=== PATIENT | female | born 1990 | race Caucasian/White ===

== ENCOUNTER 2017-06-04 03:17 | Emergency (ER) | payer SELFPAY ==
[2017-06-04 04:54] VITALS: BP 110/53
[2017-06-04] MEDS ORDERED: BENADRYL PO ONE (05:42)
[2017-06-04] MEDS ORDERED: REGLAN PO ONE (05:42)
[2017-06-04] MEDS ORDERED: DELTASONE PO ONE (05:42)
--- NOTE | 2017-06-04 05:46 | Emergency Department Report ---
HPI - General Chief Complaint: Allergic Reaction Time Seen by Provider: 06/04/17 05:42 - HPI HPI: Patient is a 26-year-old female who speaks appropriate [place] for accurate communication patient states his throat swelling after taking left over antibiotics at home yesterday there is no shortness of breath no wheezing no dizziness no nausea vomiting no headache no chest pain patient presents today for toothache right upper described as aching and throbbing intermittent this is a chronic toothache, there is no fever no chills no tachycardia no tachypnea no shortness of breath noted at this time ED Past Medical Hx - Past Medical History Additional medical history: Insomnia - Social History Smoking Status: Never Smoker Substance Use Type: None - Medications Home Medications: Home Medications Medication Instructions Recorded Confirmed Last Taken Type traMADol [Ultram 50 MG tab] 50 mg PO Q6HR PRN #10 tablet 02/23/16 Unknown Rx Clindamycin [Clindamycin CAP] 150 mg PO Q8HR #21 capsule 06/04/17 Unknown Rx Ibuprofen [Motrin 600 MG tab] 600 mg PO Q8H PRN #30 tablet 06/04/17 Unknown Rx Metoclopramide [Reglan] 10 mg PO TID #28 tab 06/04/17 Unknown Rx diphenhydrAMINE [Benadryl CAP] 25 mg PO Q8HR PRN #28 capsule 06/04/17 Unknown Rx predniSONE [Deltasone] 40 mg PO QDAY #10 tab 06/04/17 Unknown Rx ED Review of Systems ROS: Stated complaint: SORE THROAT Other details as noted in HPI Constitutional: denies: chills, fever Eyes: denies: eye pain, eye discharge, vision change ENT: dental pain, hearing loss. denies: ear pain, throat pain, congestion Respiratory: denies: cough, shortness of breath, wheezing Cardiovascular: denies: chest pain, palpitations, dyspnea on exertion, orthopnea , edema, syncope, paroxysmal nocturnal dyspnea Endocrine: no symptoms reported Gastrointestinal: denies: abdominal pain, nausea, diarrhea Genitourinary: denies: urgency, dysuria, discharge Musculoskeletal: denies: back pain, joint swelling, arthralgia Skin: denies: rash, lesions Neurological: denies: headache, weakness, numbness, paresthesias, confusion, abnormal gait, vertigo Psychiatric: denies: anxiety, depression Hematological/Lymphatic: denies: easy bleeding, easy bruising Physical Exam - Physical Exam Vital Signs: Vital Signs 06/04/17 04:44 Temperature 98.7 F Pulse Rate 90 Respiratory 18 Rate Blood Pressure 110/53 O2 Sat by Pulse 99 Oximetry General: Patient feels well nontoxic well-nourished and well-hydrated. No acute distress Physical Exam: Patient feels well nontoxic well-nourished and well-hydrated. No acute distress pt denies sob no n/v ent: right uppper dental carries #4, mild erythema no edema no gum swelling no facial swelling, no trismus , no throat pain ED Course Vital Signs 06/04/17 04:44 Temperature 98.7 F Pulse Rate 90 Respiratory 18 Rate Blood Pressure 110/53 O2 Sat by Pulse 99 Oximetry ED Medical Decision Making - Medical Decision Making Patient feels well nontoxic well-nourished and well-hydrated. No acute distress pt denies sob no n/v ent: right uppper dental carries #4, mild erythema no edema no gum swelling no facial swelling, no trismus , no throat pain pt unsure of medication taken at home as it was al left over abx for years ago plan: treat for infected dental carries, with nsaids, clindamycin , reglan, Bendaryl, follow up with dentist in 2-3 days , pt verbalized agreement and understanding of discharge plan. Critical care attestation.: If time is entered above; I have spent that time in minutes in the direct care of this critically ill patient, excluding procedure time. ED Disposition Clinical Impression: Dental caries Allergic reaction Qualifiers: Encounter type: initial encounter Qualified Code(s): T78.40XA - Allergy, unspecified, initial encounter Disposition: TO HOME OR SELFCARE Is pt being admited?: No Does the pt Need Aspirin: No Condition: Good Instructions: Dental Caries (ED) Prescriptions: Clindamycin [Clindamycin CAP] 150 mg PO Q8HR #21 capsule diphenhydrAMINE [Benadryl CAP] 25 mg PO Q8HR PRN #28 capsule PRN Reason: cough fever itching Ibuprofen [Motrin 600 MG tab] 600 mg PO Q8H PRN #30 tablet PRN Reason: Pain Metoclopramide [Reglan] 10 mg PO TID #28 tab predniSONE [Deltasone] 40 mg PO QDAY #10 tab Referrals: ISHAAN CHRISTIAN MD [Primary Care Provider] - 3-5 Days Forms: Work/School Release Form(ED) Time of Disposition: 06:03
== END 2017-06-04 06:18 | disposition home or self-care (01) ==
LOC: ED 03:17
DX: K02.9 Dental caries, unspecified (principal); T36.95XA Adverse effect of unspecified systemic antibiotic, initial encounter; Y92.89 Other specified places as the place of occurrence of the external cause
CPT/HCPCS: 99282; J7512; Q0163